=== PATIENT | female | born 1970 | race Two or more races ===

== ENCOUNTER 2019-03-29 20:08 | Emergency (ER) | payer OTHER ==
[~2019-03-29] VITALS: Ht 154.9 cm; Wt 81.6 kg
[2019-03-30 01:01] VITALS: BP 107/68
[2019-03-30] MEDS ORDERED: HYDROcodone-ACET 7.5/325MG TAB PO ONE (01:30)
[2019-03-30] MEDS ORDERED: IBUPROFEN 400 MG TAB PO ONE (01:30)
== END 2019-03-30 02:32 | disposition home or self-care (01) ==
LOC: ER 20:25
DX: S42.401A Unspecified fracture of lower end of right humerus, initial encounter for closed fracture (principal); S92.354A Nondisplaced fracture of fifth metatarsal bone, right foot, initial encounter for closed fracture; Z88.0 Allergy status to penicillin; W01.198A Fall on same level from slipping, tripping and stumbling with subsequent striking against other object, initial encounter; Y93.89 Activity, other specified; Y99.8 Other external cause status; Y92.89 Other specified places as the place of occurrence of the external cause
CPT/HCPCS: 29105; 73080; 73610; 99283; L3260